=== PATIENT | female | born 1965 | race African-American/Black ===

== ENCOUNTER → 2019-05-24 | Outpatient (CLI) | payer OTHER ==
[~2019-05-24] MED LIST: ACETAMINOPHEN-O1 TAB PO; AMOXICILLIN500 MG PO; BUPROPION75 MG PO; DAYPRO600 M1 PO; FLEXERIL5 MG PO; GABAPENTIN TAB600 MG PO; MEDROL DOSEPAK4 MG PO; MOTRIN600 MG PO; MOTRIN800 MG PO; NAPROSYN500 MG PO; PERIDEX 480 ML480 ML PO; REXULTI1 MG PO; ROBAXIN500 MG PO; TRAMADOL HCL50 MG PO; TRAMADOL50 MG PO; TRAZADONE HYDR100 MG PO; VENLAFAXINE HY150 M2 PO; VICODIN 500 MG-1 TAB PO
== END | disposition home or self-care (01) ==
LOC: MRI 09:32
DX: M47.817 Spondylosis without myelopathy or radiculopathy, lumbosacral region (principal); M48.07 Spinal stenosis, lumbosacral region; M24.28 Disorder of ligament, vertebrae; M51.87 Other intervertebral disc disorders, lumbosacral region; R20.0 Anesthesia of skin; R20.2 Paresthesia of skin

== ENCOUNTER 2019-11-18 19:31 | Emergency (ER) | payer OTHER ==
[~2019-11-18] VITALS: Ht 177.8 cm; Wt 59.0 kg
[2019-11-18 19:59] VITALS: BP 139/92
[2019-11-18] MEDS ORDERED: AUGMENTIN 875-875 MG PO (21:50)
== END 2019-11-18 21:55 | disposition home or self-care (01) ==
LOC: ED 19:31
DX: S01.512A Laceration without foreign body of oral cavity, initial encounter (principal); S01.412A Laceration without foreign body of left cheek and temporomandibular area, initial encounter; S01.411A Laceration without foreign body of right cheek and temporomandibular area, initial encounter; Z88.8 Allergy status to other drugs, medicaments and biological substances; Z79.899 Other long term (current) drug therapy; Z23 Encounter for immunization; W51.XXXA Accidental striking against or bumped into by another person, initial encounter; Y93.89 Activity, other specified; Y92.89 Other specified places as the place of occurrence of the external cause; Y99.8 Other external cause status

== ENCOUNTER → 2021-01-04 | Outpatient (CLI) | payer MEDICARE, MEDICAID ==
[~2021-01-04] MED LIST changes: +AUGMENTIN 875-875 MG PO
[2021-01-04 11:54] LABS: BASO % 0.3 % (0.0-1.0); EOS % 0.4 % (1.0-4.0); HEMATOCRIT 36.6 % (37.0-47.0); LYMPH # 2.6 10*3/uL (1.3-4.4); LYMPH % 33.6 % (27.0-41.0); MEAN CELL VOLUME 95.1 fl (81.0-99.0); MEAN CORPUSCULAR HGB 31.2 pg (27.0-31.0); MEAN CORPUSCULAR HGB CONC 32.8 g/dl (33.0-37.0); MEAN PLATELET VOLUME 9.8 fl (9.6-12.3); MONO # 0.6 10*3/uL (0.1-1.0); MONO % 8.3 % (3.0-9.0); NEUT # 4.4 10*3/uL (2.3-7.9); PLATELET COUNT AUTOMATED 516 10*3/uL (130-400); RED BLOOD COUNT 3.85 10*6/uL (4.10-5.10); RED CELL DISTRI WIDTH 12.3 % (0-14.5); WHITE BLOOD COUNT 7.7 10*3/uL (4.8-10.8)
[2021-01-04 12:04] LABS: BUN 7 mg/dl (7-24); CHLORIDE 107 mmol/L (98-107); CREATININE 0.84 mg/dL (0.55-1.02); POTASSIUM 3.7 mmol/L (3.5-5.1); SODIUM 141 mmol/L (136-145)
== END | disposition home or self-care (01) ==
LOC: LAB 11:30
PROVIDERS: ATTEND Orthopaedic Surgery
DX: Z01.812 Encounter for preprocedural laboratory examination (principal); Z13.1 Encounter for screening for diabetes mellitus; M16.11 Unilateral primary osteoarthritis, right hip; E11.9 Type 2 diabetes mellitus without complications; D68.8 Other specified coagulation defects

== ENCOUNTER 2022-04-17 17:39 | Emergency (ER) | payer MEDICARE, MEDICAID ==
[~2022-04-17] VITALS: Ht 175.2 cm; Wt 65.8 kg
[2022-04-17 17:52] VITALS: BP 150/77
[2022-04-17] MEDS ORDERED: METHOCARBAMOL500 M1 PO (21:08)
[2022-04-17] MEDS ORDERED: PREDNISONE20 M1 PO (21:08)
== END 2022-04-17 21:19 | disposition home or self-care (01) ==
LOC: ED 17:39
DX: M54.12 Radiculopathy, cervical region (principal); Z88.8 Allergy status to other drugs, medicaments and biological substances; Z79.899 Other long term (current) drug therapy; Z98.890 Other specified postprocedural states; Z90.89 Acquired absence of other organs; Z98.51 Tubal ligation status